=== PATIENT | female | born 1945 | race Caucasian/White ===

== ENCOUNTER → 2016-12-11 | Outpatient (CLI) | payer MEDICARE, OTHER ==
[~2016-12-11] MED LIST: ASA325 MG PO; CYMBALTA60 MG PO; ISOPTIN SR180 MG PO; MILK OF MAGNESI10 ML PO; MIRALAX PACKET17 GM PO; OXY IR DPS5 MG PO; PROTONIX40 MG PO; SENOKOT S1 TAB PO; TYLENOL DPS325 MG PO; ULTRAM DPS50 MG PO
== END | disposition home or self-care (01) ==
LOC: RAD.S 14:30
DX: R60.0 Localized edema (principal); L03.116 Cellulitis of left lower limb